=== PATIENT | male | born 1950 | race Caucasian/White ===

== ENCOUNTER → 2021-01-28 09:50 | Outpatient (CLI) | payer MEDICARE, SELFPAY ==
--- NOTE | ~2021-01-28 | XR_ITS ---
EXAMINATION: XR chest 2V 01/28/2021 10:47 INDICATION: Cough PROCEDURE: 2 view chest COMPARISON: No prior studies for comparison. FINDINGS: The lungs are clear. The lungs are hyperinflated which is consistent with, but not diagnost ic of chronic obstructive pulmonary disease. The cardiomediastinal silhouette is within normal limit s. There are no pleural effusions. There is no pneumothorax suspected. IMPRESSION: 1: NO ACUTE CARDIOPULMONARY DISEASE. Reviewed, dictated and finalized at location A.
== END ==
PROVIDERS: PCP Family Medicine; Visit Provider Physician Assistant
DX: R05 Cough (principal)
CPT/HCPCS: 71046

== ENCOUNTER 2021-05-10 01:43 | Day surgery (SDC) | payer MEDICARE, SELFPAY ==
[2021-04-29 14:04] VITALS: BMI 29.7
--- NOTE | 2021-04-29 14:18 | PC.NURSE ---
Report to the Outpatient Waiting Room, entrance under the green pavilion located off [facility], at time __0730_ on date _05/10/21_. OR Time: ____0930 AM____. - You and your visitor will be asked a series of questions to screen for COVID 19 for your protection. - A mask is required within the hospital. - Only one visitor is allowed at this time. Patient visitors will be guided where to wait when not with patient. Preoperative COVID Testing Requirements: BRING COVID VACCINATION CARD WITH YOU DAY OF SURGERY No COVID Test needed if: (proof is required; if not received patient will have Rapid Test prior to entry) - Patient has received COVID Vaccine at least 14 days prior to procedure date or - Patient has positive COVID test result within last 90 days of surgery date. COVID Test needed if above criteria is not met If not COVID vaccinated a COVID test must be conducted within 72 hours of surgery and patient is asked to isolate self from time of testing until procedure. You will go to the [facility] for your COVID testing. The [facility] is located at the corner of [address] [facility]. You will only be called if COVID results are positive and your surgeon may reschedule your elective surgery date. Patients may have clear liquids (water, carbonated beverages, clear teas, apple juice) until 3 hours prior to surgery (0630 AM) with a maximum of 20 ounces. - No food from midnight until time of surgery - Infants may have breast milk until 4 hours before surgery, infant formula 6 hours prior to surgery. - Children will be allowed to drink immediately following surgery. If applicable, please bring a bottle or sippy cup to assist with drinking. Juice, water, soda, and popsicles are readily available. For infants on formula, please bring formula the day of surgery. Pacifiers are allowed. Take the following medications with a SIP of water the morning of surgery: ___NASAL SPRAY IF NEEDED Medications to discontinue per physician NONE Date to take last dose Please no make-up, nail rwandan, hairspray, perfume, deodorant, or body powder the day of surgery. No jewelry (including any body piercings) or valuables the day of surgery, leave them at home. Please take a shower or bath the night before, or the morning of, surgery with an antibacterial soap. Wear comfortable, loose fitting clothing. Children are encouraged to wear pajamas. - Jewelry must be removed prior to entering the operating room. Rings and piercings that are not removed may be cut off. - The hospital will not accept responsibility for valuables. - Please leave all valuables, including medications, at home the day of surgery. If you are going home after surgery, a licensed van driver helper must drive you home. - NO public transportation without another adult. - We recommend that an adult stay with you for 24 hours following discharge. - We also recommend that you do not drive, make important decision, drink alcoholic beverages, or take any drugs that were not prescribed by your health care provider for at least 24 hours after your discharge time. For Pediatric surgeries, we recommend two adults accompany the child home (only one inside the building at this time). Follow any additional instructions given to you from your surgeon. Telephone instructions given to ____PT and asked if any additional questions and then verbalized understanding. Patient advised to call surgeon office or pre surgery nurse liaison [phone] if any additional questions.
--- NOTE | 2021-05-06 18:54 | PM.IMHP ---
H&P: HPI History of Present Illness Date/Time: 05/06/21 18:54 Chief Complaint: vocal cord lesions hoarse voice Narrative: patient presents for planned surgical procedure no change in symptoms no change in medical history Review of Systems Constitutional: Constitutional: Denies fatigue, Denies fever(s) and Denies lethargy Eyes: Eyes: Denies blurry vision and Denies change in vision ENT: Reports as per HPI Cardiovascular: Cardiovascular: Denies chest pain Respiratory: Respiratory: Denies cough Endocrine: Endocrine: Denies fatigue Hematologic/Lymphatic: Hematologic/Lymphatic: Denies easy bleeding, Denies easy bruising and Denies lymphadenopathy Allergic/Immunologic: Allergic/Immunologic: Denies seasonal rhinorrhea [facility] Past Medical History Medical History (Reviewed 04/15/21 @ 08:03 by Kristina Young [facility]) Hypogonadism Family History Family History Father Family history of cardiovascular disease Family history of heart disease in male family member before age 55 Patient's father is Mother Patient's mother is in good health Sibling Patient's sister is in good health Patient's brother is in good health Social History Social History (Reviewed 04/15/21 @ 08:03 by Kristina Young [facility]) Smoking status: Never smoker Second hand tobacco smoke exposure: No Alcohol intake: current Drinks per week: 4 Alcohol use details: [facility] care concerns: No Meds Home Medications and Allergies Home Medications Medication Instructions Recorded Confirmed Type sildenafil 100 mg tablet 100 mg PO DAILY PRN #30 tablet 04/27/20 04/29/21 Rx syringe with needle 3 mL 22 gauge #100 ea 11/20/20 04/15/21 Rx x 3/4 testosterone cypionate 200 mg/mL 125 mg IM .bi weekly #10 ml 11/20/20 04/29/21 Rx intramuscular oil fluticasone propionate 50 2 spray INTRANASAL BID #16 ml 04/15/21 04/29/21 Rx mcg/actuation nasal spray,suspension Allergies Allergy/AdvReac Type Severity Reaction Status Date / Time No Known Allergies Allergy Verified 04/29/21 14:02 Exam Const: General: cooperative, healthy appearing, comfortable, well developed and alert HENMT: Head: normal to inspection, normocephalic and atraumatic Ears: hearing grossly normal bilaterally, external ears normal, TM's normal bilaterally and EAC's normal General nose exam: Normal external nose present, Normal nares present, No nasal polyps present, Normal nasal mucous membranes and turbinates present and Normal septum present Face and sinus: normal facial exam Mouth: Yes Normal oral and palatal mucosa present, Yes lip normal, Yes tongue normal, Yes oropharynx normal and Yes moist mucous membranes Teeth and gingiva: dentition normal and gingiva normal Throat: posterior oropharynx normal, tonsils normal and uvula midline Eyes: General: appearance normal, both eyes and all related structures Periorbital: periorbital findings normal Eyelids: eyelids normal Conjunctivae: conjunctivae normal Sclera: sclerae normal Neck: Neck: normal visual inspection, full ROM and no lymphadenopathy Thyroid: thyroid normal Lymphatic: no lymphadenopathy noted Resp: Effort & Inspection: normal respiratory effort and able to speak in complete sentences Cardio: Jugular venous distension: no JVD Neuro: Cranial nerves: Yes CN's II-XII intact bilaterally Assessment and Plan Assessment and plan (1) Lesion of vocal cord: Code(s): J38.3 - Other diseases of vocal cords Status: Acute Assessment and Plan: plan is for the operating room direct laryngoscopy biopsy of vocal cord lesions total operative time 50 minutes risks were discussed including bleeding infection damage to surrounding structures hoarse voice postoperative pain need for postoperative pain medication postoperative bleeding. Patient voiced understanding and agreed.
--- NOTE | 2021-05-10 07:05 | WPDHPUPDATE1 ---
History and Physical Update Update Date/Time: 05/10/21 07:05 History and Physical has been reviewed, including an updated exam of the patient. There are NO changes in the patient's condition. Risks, benefits, and alternatives have been discussed and questions answered. Patient agrees to proceed with procedure.
[2021-05-10 07:50] VITALS: BP 139/84; PULSE 67; RESP 18; TEMP 36.8; O2SAT 97; BMI 29.7
[2021-05-10] MEDS: LACTATED RINGERS 1,000 ML 30 ML IV CONT (08:32)
--- NOTE | 2021-05-10 08:46 | P.PNAN_ITS ---
Anes - Initial Pre Proc Eval Procedure: Operation Date: 05/10/21 09:30 Proposed Procedures p Direct Laryngoscopy with Biopsy - Ender Lynn MD Date/Time: 05/10/21 08:46 Surgeon: Ender Lynn MD Pre Op Diagnosis: Bilaeral Vocal Cord Lesions Patient Data Age: 70 Gender: M Height: 1.85 m Weight: 102.4 kg Last Vital Signs Temp 36.8 C 05/10/21 07:50 Pulse 67 05/10/21 07:50 Resp 18 05/10/21 07:50 BP 139/84 05/10/21 07:50 Pulse Ox 97 05/10/21 07:50 Allergies Allergy/AdvReac Type Severity Reaction Status Date / Time No Known Allergies Allergy Verified 05/10/21 07:45 Home Medications Medication Instructions Recorded Confirmed Type sildenafil 100 mg tablet 100 mg PO DAILY PRN #30 tablet 04/27/20 04/29/21 Rx syringe with needle 3 mL 22 gauge #100 ea 11/20/20 04/15/21 Rx x 3/4 testosterone cypionate 200 mg/mL 125 mg IM .bi weekly #10 ml 11/20/20 04/29/21 Rx intramuscular oil fluticasone propionate 50 2 spray INTRANASAL BID #16 ml 04/15/21 04/29/21 Rx mcg/actuation nasal spray,suspension Patient hx anesthesia problems: none Family hx anesthesia problems: none Results Review: All pre-operative results and documents have been reviewed as part of the pre-operative evaluation. [facility] Past Medical History Medical History (Updated 04/15/21 @ 08:28 by Ender Lynn MD) Hypogonadism Surgical History Surgical History (Updated 05/10/21 @ 08:47 by John Benz MD) H/O sinus surgery Family History Family History Father Family history of cardiovascular disease Family history of heart disease in male family member before age 55 Patient's father is Mother Patient's mother is in good health Sibling Patient's sister is in good health Patient's brother is in good health Social History Social History Smoking status: Never smoker Second hand tobacco smoke exposure: No Alcohol intake: current Drinks per week: 4 Alcohol use details: beer Living arrangements: with family Spiritual care concerns: No Anes - Eval Final PreProcedure Day of Procedure 05/10/21 08:46 Patient weight: overweight Heart: regular rate and rhythm Lungs: clear to auscultation Airway: Mallampati scale class II Neurological: alert and oriented Last oral intake: >/= 8 hours ASA classification: II Emergent: no Anesthetic plan: proceed Anesthesia type and monitoring: general ETT and standard monitoring Results Review: All pre-operative results and documents have been reviewed as part of the pre-operative evaluation. Informed Consent: The patient's anesthetic plan and its attendant risks and benefits were discussed with the patient/family/POA. Questions were solicited and answers provided to the satisfaction of the patient/family/POA.
[2021-05-10] MEDS: OXYMETAZOLINE HCL 0.05% NAS 15 ML BTL (*BKC) 1 SPRAY XX (10:01)
[2021-05-10 10:05] VITALS: BP 124/69; PULSE 60; RESP 10; TEMP 36.1; O2SAT 99
--- NOTE | 2021-05-10 10:16 | W.PM.PROC2 ---
Procedure Note - Detailed Date of Procedure 05/10/21 Pre-op Diagnosis Bilaeral Vocal Cord Lesions Post-op Diagnosis same Procedure Performed Direct laryngoscopy, biopsy of right posterior vocal cord lesion Surgeon Ender Lynn MD Anesthesia general Indications See above Findings Left posterior vocal cord lesion improving right slightly improving superior based small erythematous granulomatous appearing lesion scant leukoplakia surrounding both biopsied Description of Procedure Patient correctly identified consent verified preop. Patient brought operating room. Time-out performed. Patient prepped and draped the aforementioned procedure. Second time-out performed. Maxillary tooth mouth guard placed. MicroFrance laryngoscope placed within the oral cavity used to visualize bilateral vocal cords with the aforementioned findings noted. Patient suspended. LT a applied. Biopsy of right vocal cord performed with no complication. Afrin-soaked pledget utilized to obtain hemostasis. Pledgets removed. Adequate hemostasis. Patient taken out of suspension. Laryngoscope removed. Maxillary tooth mouth guard removed. All hardware removed and accounted for. No complications. I performed all dictated portions. Total blood loss 1 cc. Care the patient turned over to Anesthesiology. Estimated Blood Loss 1 Drains No Packing No Pathology yes Complications No immediate complications Condition stable Disposition PACU
[2021-05-10 10:20] VITALS: BP 127/75; PULSE 52; RESP 15; O2SAT 99
[2021-05-10 10:35] VITALS: BP 121/77; PULSE 58; RESP 13; O2SAT 99
[2021-05-10 10:45] VITALS: BP 135/80
[2021-05-10 11:15] VITALS: BP 140/83; PULSE 59; RESP 16
== END 2021-05-10 11:40 | disposition home or self-care (01) ==
PROVIDERS: PCP Family Medicine; Visit Provider Otolaryngology
PROC: 0CJS8ZZ Inspection of Larynx, Via Natural or Artificial Opening Endoscopic (ICD-10-PCS; CPT 31535; principal; 2021-05-10 09:30)
DX: J38.3 Other diseases of vocal cords (principal); E29.1 Testicular hypofunction
CPT/HCPCS: 31535; 88305; A9270; J0330; J1100; J2405; J2704; J7120

== ENCOUNTER 2025-01-06 09:06 | Emergency (ER) | payer MEDICARE, SELFPAY ==
[2025-01-06 09:11] VITALS: BP 178/92; PULSE 72; RESP 16; TEMP 36.4; O2SAT 97
--- NOTE | 2025-01-06 09:36 | ED_ITS ---
HPI - Eye Problem General Chief complaint: Eye Problems Stated complaint: think I have a detached retina Time Seen by Provider: 01/06/25 09:35 History of Present Illness HPI Narrative: 74-year-old male presents ER complaining of acute onset of floaters his right peripheral vision. Patient denies any known ocular trauma. States has some blurred vision to his right peripheral vision. Denies history of corrective eye surgeries. We wears reading glasses only. Related Data Home Medications ?Medication ?Instructions ?Recorded ?Confirmed ?Last Taken ?Type aspirin 81 mg tablet,delayed 81 mg PO DAILY 02/23/22 0 09/24/24 Unknown History release multivitamin (Multiple Vitamins 1 tablet PO DAILY 02/1209/24/24 Unknown History tablet) fluticasone propionate 50 2 spray intranasal BID PRN 1 05/30/22 09/24/24 Unknown History mcg/actuation nasal spray,suspension (Flonase Allergy Relief) Allergies Allergy/AdvReac Type Severity Reaction Status Date / Time No Known Allergies Allergy Verified 01/06/25 09:34 Review of Systems Review of Systems: All systems reviewed & are unremarkable except as noted in HPI and below PMFSH Past Medical History Medical History (Updated 01/06/25 @ 10:27 by Newton Cornelius, BAR ROLLER) Long-term current use of testosterone cypionate Hypogonadism Surgical History Surgical History H/O sinus surgery Family History Family History Father Family history of cardiovascular disease Family history of heart disease in male family member before age 55 Patient's father is Mother Patient's mother is in good health Sibling Patient's sister is in good health Patient's brother is in good health Social History Social History Smoking status: Never smoker Second hand tobacco smoke exposure: No Alcohol intake: current Drinks per week: 4 Alcohol use details: beer Do You Feel Safe in your Home?: Yes Lack of Transportation: No Lack of Food: Never True Current Housing: I Have Housing Concerned About Future Housing: No Difficulty Paying Gas/Electric Bills: No Difficulty Paying for Meds: No Currently Unemployed: No Education: Master's Degree or Higher Living arrangements: with family Spiritual care concerns: No Exam Const: General: healthy appearing, no acute distress and alert Nutritional Appearance: well nourished Orientation/consciousness: patient oriented x3 Limitations: no limitations HENMT: Head: normal to inspection Eyes: Conjunctivae: conjunctivae normal Pupils: Equal, round and reactive pupils present EOM: EOMs intact bilaterally Direct Ophthalmoscopy: no photophobia Resp: Effort & Inspection: normal respiratory effort Auscultation: clear to auscultation bilaterally Cardio: Rate: regular rate Rhythm: regular rhythm Skin: General skin exam: normal color Neuro: General: patient oriented x3, moves all extremities and CN's II-XI intact bilaterally Cranial nerves: Yes Nystagmus not present Speech: normal speech Gait exam (Neuro): Normal gait present Extrem: General: normal to inspection Psych: Mental Status: mental status grossly normal Affect: normal affect Attitude: cooperative Course Vital Signs Vital signs: Vital Signs Temperature 36.4 C 01/06/25 09:11 Pulse Rate 72 01/06/25 09:11 Respiratory Rate 16 01/06/25 09:11 Blood Pressure 178/92 H 01/06/25 09:11 Pulse Oximetry 97 01/06/25 09:11 Oxygen Delivery Room Air 01/06/25 09:11 Temperature 36.4 C 01/06/25 09:11 Pulse Rate 72 01/06/25 09:11 Respiratory Rate 16 01/06/25 09:11 Blood Pressure 178/92 H 01/06/25 09:11 Pulse Oximetry 97 01/06/25 09:11 Oxygen Delivery Room Air 01/06/25 09:11 MDM - Eye Problem MDM Narrative Medical decision making narrative: 74-year-old male presents to the ER complaining of floaters and peripheral vision changes to his right eye that began yesterday. Visual acuity was 20/40 in the left eye, 20/100 in the right eye. Intra-ocular pressure of the right ey e was 18. Fluorescein was applied to the right eye, no evidence of corneal abrasion or foreign body noted. [facility] was consulted, they recommend patient transferred to their facility for further evaluation. Differential diagnosis includes retinal detachment, foreign body, migraine, vitreous hemorrhage, uveitis. Discharge Plan Discharge Clinical Impression: Blurred vision, right eye Patient Disposition: Acute Care Hospital Condition: Stable Patient Language: [place] Prescriptions: No Action fluticasone propionate [Flonase Allergy Relief] 50 mcg/actuation spray,suspension 2 spray intranasal BID PRN Rx Instructions: administer into each nostril multivitamin [Multiple Vitamins] Tablet 1 tablet PO DAILY aspirin 81 mg tablet,delayed release (DR/EC) 81 mg PO DAILY sildenafil [Viagra] 100 mg tablet 100 mg PO DAILY PRN (Reason: sexual activity) Qty: 30 3RF Rx Instructions: administer 30 minutes to 4 hours before activity (DME) Syringe 3cc/22Gx3/4 3 mL 22 gauge x 3/4 syringe See Rx Instructions .ROUTE .MEDSUPPLY Qty: 100 3RF Rx Instructions: Use to inject Testosterone testosterone cypionate 200 mg/mL oil 120 mg IM WEEKLY Qty: 10 2RF Follow-up/Referrals: Cruzito Ramirez DO [Primary Care Provider, Internal Medicine] Time of Disposition: 10:27
--- OUTSIDE RECORDS SUMMARY | 2025-01-06 10:05 | XMS_ITS | Encounter Summary ---
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
--- OUTSIDE RECORDS SUMMARY | 2025-01-06 10:26 | XMS_ITS | Clinical Summary ---
Author Organization [facility] Address [address] [place] [address] Care Team Providers Care Unit Assembler Name Role Phone Unavailable Primary Care Provider Unavailabl e Source Comments [facility],non-owned Affiliates and Associated Physician Practices is amultiple site organization consisting of ambulatory clinics and hospital sitesin [place], [place], [place] and [place]. This disclosure is being madepursuant to the Care Everywhere program and may not contain all information available regarding this patient. 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 Gender Identity Not on file Sexual Orientation Not on file Plan of Treatment Health Maintenance Due Date Last Done Comments HEPATITIS C SCREENING 07/20/1966 DTAP/TDAP/TD VACCINES (1 - Tdap) 07/25/1967 PNEUMOCOCCAL VACCINE 50+ (1 of 1 - PCV) 1998 ZOSTER VACCINE (1 of 2) 1998 Respiratory Syncytial Virus (RSV) Vaccine Pt: or over 60 yrs (1 - 1-dose 75+ series) 07/25/2023 COVID-19 VACCINE ( - 2023-2 5 season) 2024 DEPRESSION SCREENING 05/15/2024 INFLUENZA VACCINE (#1) 2025 HEPATITIS B VACCINE Aged Out No longe r eligible based on patient's age to complete this topic HIB VACCINE Aged Out No longer eligi ble based on patient's age to complete this topic HPV VACCINE Aged Out No longer eligi ble based on patient's age to complete this topic MENINGOCOCCAL (Group B) VACC INE SHARED DECISION-MAKING Aged Out No longer eligibl e based on patient's age to complete this topic MENINGOCOCCAL GROUPS A/C/Y/W VACCINE Aged Out No longer eligible b ased on patient's age to complete this topic Insurance MANAGED MEDICARE ADV
--- OUTSIDE RECORDS SUMMARY | 2025-01-06 10:26 | XMS_ITS | Encounter Summary ---
Author Organization [facility] Address [address] [place] [address] Care Team Providers Care Escrow Assistant Name Role Phone Unavailable Primary Care Provider Unavailabl e Reason for Visit * Reason Onset Date Comments Eye Problem 01/06/2025 Encounter Details Date Type Department Care Team (Late st Contact Info) Description 01/06/2025 Telephone [facility] - Op[facility]mology [address] [place] [address] Slava Valencia MD [address] [place], [place] [id number] Eye Problem Social History Tobacco Use Types Packs/Day Years Used Date Smoking Tobacco: Never Assessed Sex and Gender Information Value Date Recorded Sex Assigned at Not on file 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 Per [facility] care team, patient presented with new floaters and fogginess of temporal aspect of vision in right eye beginning yesterday while hiking, denies prior eye history, denies trauma,denies significant PMHx. Per [facility] provider exam, VA 20/40 OD and 20/100 OS, full EOM, PERRL, IOP 18in right eye, no FCN uptake. Plan: Recommend transfer to [facility] for further ophthalmic evaluation. Reminded provider that we cannot fully exclude vision-threatening or life- threatening problems via remote evaluation. While we can offer recommendations based on the information provided to us, decision-making is ultimately the provider's responsibility and we would be happy to evaluate the patientmore urgently if the provider and patient so choose. Provider agreed. Slava Valencia MD Ophthalmology Resident 01/06/2025 10:13 AM documented in this encounter Plan of Treatment Not on file documented as of this encounter Visit Diagnoses Not on filedocumented in this encounter
[2025-01-06 10:32] VITALS: BP 148/100; PULSE 71; RESP 19; O2SAT 97
--- NOTE | 2025-01-06 10:37 | PC.NURSE ---
Pt offered transportations to [facility], Pt refused transportation, will transport to [facility].
[2025-01-06 10:49] VITALS: BP 150/89; PULSE 79; RESP 18; O2SAT 97
== END 2025-01-06 10:52 | disposition short-term general hospital (02) ==
PROVIDERS: Emergency Provider Nurse Practitioner Family; PCP Internal Medicine
DX: H53.8 Other visual disturbances (principal)
CPT/HCPCS: 99283